=== PATIENT | female | born 1995 | race Caucasian/White ===

== ENCOUNTER → 2024-01-18 | Outpatient (CLI) | payer MEDICAID ==
[~2024-01-18] MED LIST: CETIRIZINE HCL10 MG PO; DESYREL 100MG100 MG PO; ESCITALOPRAM20 MG PO; HYDROXYZINE HYD50 M1 PO; IBUPROFEN800 MG PO; NEURONTIN300 MG/CAP; PHENERGAN W/CO120 ML PO
[2024-01-18 17:21] LABS: CLUE CELLS OBSERVED (Not Observd)
== END ==
LOC: LAB 16:58
PROVIDERS: Nurse Practitioner Family
DX: Z20.2 Contact with and (suspected) exposure to infections with a predominantly sexual mode of transmission (principal)
CPT/HCPCS: Q0111

== ENCOUNTER → 2024-02-16 | Outpatient (CLI) | payer MEDICAID ==
[2024-02-16 14:15] LABS: BASO # 0.02 K/mm3 (0.02-0.10); EOS # 0.09 K/mm3 (0.04-0.40); EOS % 1.2 % (1.0-5.0); HEMATOCRIT 34.3 % (37.0-47.0); HEMOGLOBIN 10.8 g/dL (12.5-16.0); LYMPH# 2.24 K/mm3 (1.50-4.00); MEAN CELL VOLUME 75 fl (78-100); MEAN CORPUSCULAR HEMOGLOBIN 24 pg (27-31); MEAN CORPUSCULAR HGB CONC 32 g/dL (33-37); MEAN PLATELET VOLUME 8.8 fl (7.4-10.4); MONO # 0.39 K/mm3 (0.20-0.80); NEU # 4.79 K/mm3 (1.40-6.50); PLATELET COUNT 439 K/mm3 (130-400); RED BLOOD COUNT 4.58 M/mm3 (4.10-5.30); RED CELL DISTRIBUTION WIDTH 15.8 % (11.5-14.5); WHITE BLOOD COUNT 7.6 K/mm3 (4.8-10.8)
[2024-02-16 14:25] LABS: ALBUMIN 4.6 g/dL (3.5-5.0)
[2024-02-16 14:28] LABS: TOTAL PROTEIN 7.4 g/dL (6.4-8.3)
[2024-02-16 14:30] LABS: TOTAL BILIRUBIN 0.3 mg/dL (0.2-1.2)
== END ==
LOC: LAB 14:03
PROVIDERS: Nurse Practitioner
DX: Z00.00 Encounter for general adult medical examination without abnormal findings (principal); R63.5 Abnormal weight gain; R53.83 Other fatigue; Z86.39 Personal history of other endocrine, nutritional and metabolic disease

== ENCOUNTER → 2024-03-07 | Outpatient (CLI) | payer MEDICAID ==
[2024-03-08 10:10] LABS: AFFIRM VAGINITIS PANEL RESULTS AMS
== END ==
LOC: LAB 17:18
PROVIDERS: Nurse Practitioner
DX: N89.8 Other specified noninflammatory disorders of vagina (principal)

== ENCOUNTER 2024-05-14 10:08 | Emergency (ER) | payer MEDICAID ==
[~2024-05-14] VITALS: Ht 167.6 cm; Wt 72.7 kg
[2024-05-14 11:55] LABS: PH-URINE 6.5 (5.0 - 8.0); URINE APPEARANCE CLEAR (CLEAR); URINE BILIRUBIN NEGATIVE (NEGATIVE); URINE BLOOD NEGATIVE (NEGATIVE); URINE COLOR YELLOW (YELLOW); URINE GLUCOSE NEGATIVE (NEGATIVE); URINE KETONE NEGATIVE (NEGATIVE); URINE LEUKOCYTE ESTERASE NEGATIVE (NEGATIVE); URINE NITRATE NEGATIVE (NEGATIVE); URINE PROTEIN(semi-quant) NEGATIVE (NEGATIVE)
[2024-05-14 11:56] LABS: URINE WBC 0-1 /hpf (0-3)
[2024-05-14 12:12] VITALS: BP 104/72
== END 2024-05-14 12:12 | disposition home or self-care (01) ==
LOC: ED 10:08
PROVIDERS: Family Medicine
DX: T19.2XXA Foreign body in vulva and vagina, initial encounter (principal); R30.0 Dysuria; W44.8XXA Other foreign body entering into or through a natural orifice, initial encounter